=== PATIENT | male | born 1995 | race Caucasian/White ===

== ENCOUNTER 2023-07-20 06:35 | Emergency (ER) | payer BC ==
[2023-07-20 08:23] LABS: APPEARANCE,URINE CLEAR (Clear); BILIRUBIN,URINE NEGATIVE (Negative); COLOR,URINE YELLOW (Yellow); GLUCOSE,URINE NEGATIVE (Negative); KETONES,URINE NEGATIVE (Negative); LEUKOCYTE ESTERASE,URINE NEGATIVE (Negative); NITRITE,URINE NEGATIVE (Negative); OCCULT BLOOD,URINE 2+ (Negative); PH,URINE 5.5 (5.0-8.0); PROTEIN,URINE NEGATIVE (Negative); UROBILINOGEN,URINE 0.2 (0.2-1.0)
[2023-07-20] MEDS: Morphine 4 MG/ML Syringe IVPUSH ONE (08:36)
[2023-07-20] MEDS: Sodium Chloride 0.9% 1,000 ML IV ONE ×2 (08:36→10:04)
[2023-07-20] MEDS: Ondansetron 4 MG/2 ML SDV IVPUSH ONE (08:36)
[2023-07-20 08:59] LABS: BASOPHILS PERCENT AUTO 0.3 % (0.0-1.0); EOSINOPHILS ABSOLUTE AUTO 0.1 K/mm3 (0.0-0.4); EOSINOPHILS PERCENT AUTO 0.8 % (0.0-6.0); HEMATOCRIT 45.2 % (42.0-52.0); HEMOGLOBIN 15.8 gm/dl (14.0-18.0); IMMATURE GRAN ABSOLUTE AUTO 0.04 K/mm3 (0.00-0.05); IMMATURE GRAN PERCENT AUTO 0.5 % (0.0-0.4); LYMPHOCYTES ABSOLUTE AUTO 1.7 K/mm3 (1.0-4.8); LYMPHOCYTES PERCENT AUTO 22.4 % (24.0-44.0); MEAN CORPUSCULAR HEMOGLOBIN 31.2 pg (28.0-32.0); MEAN CORPUSCULAR VOLUME 89.3 fl (83.0-99.0); MEAN PLATELET VOLUME 12.4 fl (9.4-12.4); MONOCYTES ABSOLUTE AUTO 0.5 K/mm3 (0.0-0.8); MONOCYTES PERCENT AUTO 6.1 % (0.0-8.0); NEUTROPHILS ABSOLUTE AUTO 5.3 K/mm3 (1.8-7.7); NEUTROPHILS PERCENT AUTO 69.9 % (41.0-71.0); PLATELET COUNT,PLT 175 K/mm3 (150-400); RED BLOOD CELL COUNT 5.06 M/mm3 (4.52-5.90)
[2023-07-20 09:08] LABS: INR 0.97; PROTHROMBIN TIME 10.4 SECONDS (9.7-12.0)
[2023-07-20 09:19] LABS: A/G RATIO 1.1 (1-2); ALBUMIN 4.1 g/dl (3.4-5.0); ANION GAP 16.1 (5-15); BILIRUBIN TOTAL 0.6 mg/dL (0.2-1.0); BUN/CREATININE RATIO 11.5 (14-18); CALCIUM 9.2 mg/dL (8.5-10.1); CREATININE 1.3 mg/dL (0.7-1.3); EST CRCL DRUG DOSING (CG) 95.61 mL/min; POTASSIUM,K 4.1 mEq/L (3.5-5.1)
[2023-07-20 09:27] LABS: LACTIC ACID 2.8 mmol/L (0.4-2.0)
[2023-07-20] MEDS: Ketorolac 30 MG/ML SDV IVPUSH ONE (09:29)
[2023-07-20] MEDS: cefTRIAXone 1 GM in Sodium Chloride 0.9% 100 ML IV ONE (10:27)
[2023-07-20] MEDS: Tamsulosin 0.4 MG Cap.ER PO ONE (10:27)
[2023-07-20] MEDS: Acetaminophen/oxyCODONE 325-5 MG Tab PO ONE (11:11)
[2023-07-20 11:42] LABS: BACTERIA,URINE RARE /hpf (FEW); EPITHELIAL CELLS,URINE 0-5 /hpf (0-5); MUCUS,URINE NOT SEEN /hpf (FEW); RBC,URINE 0-5 /hpf (0-5); WBC,URINE 0-5 /hpf (0-5)
[2023-07-20 13:39] VITALS: BP 149/101; PULSE 90
== END 2023-07-20 11:13 | disposition home or self-care (01) ==
LOC: JD.ED 06:35
DX: N20.0 Calculus of kidney (principal); Z79.899 Other long term (current) drug therapy; Z86.16 Personal history of COVID-19
CPT/HCPCS: 36415; 74176; 80053; 81001; 83605; 83690; 85025; 85610; 87040; 96361; 96365; 96375; 99284; A9270; J0696; J1885; J2270; J2405; J3490; J7030